=== PATIENT | male | born 1995 | race Caucasian/White ===

== ENCOUNTER 2019-10-17 12:15 | Emergency (ER) | payer OTHER ==
[~2019-10-17] VITALS: Ht 185.4 cm; Wt 88.6 kg
--- NOTE | 2019-10-17 12:55 | PHYS DOC ---
Past Medical History Past Medical History: Diabetes-Type I (RAS MEJÍA MD) General Adult EDM: Chief Complaint: HYPERGLYCEMIA HPI: HPI: Patient is a 24 year old man with history of diabetes type 1 who presents today from [facility] to be evaluated for hyperglycemia with nausea and vomiting that begun 4 days ago and got worse this morning. Patient was booked into prison on October 13, 2019, he had an insulin pump that was removed because he cannot be in the general population with the pump. He was started on injectable insulins He was vomiting this morning and blood glucose in the 400s. Patient is lethargic and not able to give much information. 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 (SARAH ARROYO APRN) HPI: 24-year-old male presenting to the emergency department from [facility] with nausea vomiting and hyperglycemia initially seen by nurse practitioner Sarah Lopez. We initiated a DKA work-up on the patient and then saw the patient and pneumomediastinum on chest x-ray. CT chest ordered. CT chest shows pneumonia mediastinum without obvious etiology with signs of esophagitis on CT scan. He has a history of GERD. The patient has been having multiple episodes of nausea and vomiting and has been treated for hyperglycemia for more than the 3 days that he was at the counts include 234 beds at the [facility] which they just received him from another prison. He has not had any hemoptysis unilateral leg swelling. He came in initially and was confused and tachycardic. His blood sugar was initially over 600. IV fluids administrated. His EKG showed mild ST segment elevation in lead V2 and V3. We spoke with cardiology who reviewed his EKG does not meet STEMI criteria. Dr. Arnold reviewed the patient's EKG as to Dr. Leone. Given the patient's pneumomediastinum Boerhaave's syndrome is in the differential especially with esophagitis on the CT. Patient was given IV antibiotics. I spoke with our general surgeon who asked the patient be transferred to a hospital with cardiothoracic surgery backup which we do not have on currently. I then called [facility] and spoke with the transfer team. After they spoke with her cardiothoracic surgeon at approximately 515 they called us back and told us they were unable to take the patient because the cardiothoracic surgeon would be unable to take the patient the operating room if he/she needed to. I then put a call out to [facility] and spoke with their transfer center. They will call back, time is now 525pm. Clinically speaking the patient's heart rate remains around 115. He is more alert and clear in his mind when speaking with him. He does not have slurred speech. He has 2-second cap refill and is not in any pain. (RAS MEJÍA MD) Review of Systems: Review of Systems: Constitutional: Denies fever or chills. [] Eyes: Denies change in visual acuity. [] HENT: Denies nasal congestion or sore throat. [] Respiratory: Denies cough or shortness of breath. [] Cardiovascular: Denies chest pain or edema. [] GI: Reports nausea and vomiting. Denies abdominal pain, bloody stools or diarrhea. [] : Denies dysuria. [] Musculoskeletal: Denies back pain or joint pain. [] Integument: Denies rash. [] Neurologic: Denies headache, focal weakness or sensory changes. [] Endocrine: Reports hyperglycemia Lymphatic: Denies swollen glands. [] Psychiatric: Denies depression or anxiety. [] (SARAH ARROYO APRN) Heart Score: HEART Score for Chest Pain: HEART Score for Chest Pain Response (Comments) Value History Moderately Suspicious [address] Depression 2 Age < 45 0 Risk Factors 1 or 2 Risk Factors 1 Troponin < Normal Limit 0 Total 4 Risk Factors: Risk Factors: DM, Current or recent (<one month) smoker, HTN, HLP, family history of CAD, obesity. Risk Scores: Score 0 - 3: 2.5% MACE over next 6 weeks - Discharge Home Score 4 - 6: 20.3% MACE over next 6 weeks - Admit for Clinical Observation Score 7 - 10: 72.7% MACE over next 6 weeks - Early Invasive Strategies (SARAH ARROYO APRN) Current Medications: Current Medications Medications (Trade) Dose Ordered Sig/Lou Start Time Stop Time Status Last Admin Dose Admin Sodium Chloride 1,000 ml @ 1,000 mls/hr 1X ONCE 10/17/19 13:00 10/17/19 13:59 [facility] (SARAH ARROYO APRN) Physical Exam: PE: Constitutional: Lethargic ille appearing patient HENT: Normocephalic, atraumatic, bilateral external ears normal, oropharynx moist, no oral exudates, nose normal. [] Eyes: PERRLA, EOMI, conjunctiva normal, no discharge. [] Neck: Normal range of motion, no tenderness, supple, no stridor. [] Cardiovascular:Heart rate regular rhythm, no murmur [] Lungs & Thorax: Bilateral breath sounds are diminished. Abdomen: Bowel sounds normal, soft, no tenderness, no masses, no pulsatile masses. [] Skin: very dry skin with dry mucous membranes Back: No tenderness, no CVA tenderness. [] Extremities: No tenderness, no cyanosis, no clubbing, ROM intact, no edema. [] Neurologic: Alert and oriented X 3, normal motor function, normal sensory function, no focal deficits noted. Cranial nerves II through XII intact Psychologic: flat affect. (SARAH ARROYO APRN) EKG: EKG: [] (SARAH ARROYO APRN) Radiology/Procedures: Radiology/Procedures: []PROCEDURE: CT HEAD WO CONTRAST EXAM: Head CT without contrast. HISTORY: Altered mental status. TECHNIQUE: Computed tomographic images of the head were obtained without contrast. *One or more of the following individualized dose reduction techniques were utilized for this examination: 1. Automated exposure control. 2. Adjustment of the mA and/or kV according to patient size. 3. Use of iterative reconstruction technique. COMPARISON: None. FINDINGS: There is no acute or subacute extra-axial or intraparenchymal hemorrhage. There is no mass effect or midline shift. There is no hydrocephalus. The tate-white matter differential pattern is intact. There is gas within the soft tissues at the skull base due to soft tissue emphysema. There is a small right maxillary sinus mucous retention cyst. The mastoid air cells are clear. No fracture is seen. IMPRESSION: 1. No acute intracranial finding. 2. Soft tissue emphysema at the base of the skull. In the absence of known a etiology, correlate with a dedicated neck and chest CT. Electronically signed by: Radha Rodriguez MD (10/17/2019 2:37 PM) [facility] DICTATED and SIGNED BY: RADHA RODRIGUEZ MD DATE: 10/17/19 1437 PROCEDURE: PORTABLE CHEST 1V INDICATION: Reason: hyperglycemia, AMS / Spl. Instructions: / History: COMPARISON: September 13, 2019 FINDINGS: Single view of chest obtained. No focal airspace consolidation. There is vertically oriented regions of air seen within the upper chest as well as at the partially visualized neck base. There is also suspected linear air seen at the mediastinum. IMPRESSION: * Low-density is seen at the soft tissues of the neck base which could be secondary to some air within the area. There is also suspected pneumomediastinum. Would be difficult to exclude a small apical pneumothorax given the air projecting over the region. Electronically signed by: Naila Ovalle MD (10/17/2019 1:23 PM) [id number] DICTATED and SIGNED BY: NAILA OVALLE MD DATE: 10/17/19 1323 PROCEDURE: CT CHEST WO CONTRAST CT CHEST WO CONTRAST Indication: Pneumomediastinum Technique: Noncontrast CT imaging was performed of the chest, multiplanar reconstruction images submitted. One or more of the following individualized dose reduction techniques were utilized for this examination: 1. Automated exposure control 2. Adjustment of the mA and/or kV according to patient size 3. Use of iterative reconstruction technique. Comparison: None Findings: There is believed prominent pneumomediastinum, also extent of gas into the soft tissues of the visualized neck. There is no pneumothorax. There is diffuse esophageal wall thickening. Thoracic aortic caliber is within normal limits. There is no pleural or pericardial fluid. There is no infiltrate. No significantly enlarged nodes are identified of the chest. IMPRESSION: 1. There is prominent pneumomediastinum, also extent of gas into the soft tissues of the neck. Etiology is uncertain. There is diffuse esophageal wall thickness as may be seen with esophagitis. Electronically signed by: Vargas Morales MD (10/17/2019 2:51 PM) [facility] DICTATED and SIGNED BY: VARGAS MORALES MD DATE: 10/17/19 1451 (SARAH ARROYO APRN) Course & Med Decision Making: Course & Med Decision Making Pertinent Labs and Imaging studies reviewed. (See chart for details) This is a 24-year-old male patient with history of diabetes type 1 presenting to the ED today from [facility] to be evaluated for hyperglycemia with nausea and vomiting for four days. He had an insulin pump which was removed when he was booked in the prison on October 13, 2019. His sugars were in the 400s today. Patient appears lethargic and not able to give us much information. Bedside glucose to high to read Vitals on arrival to the ED temperature 98.6, heart rate 115, blood pressure 181/88, respirations 16, O2 sats 98% on room air CBC with a WBC of 17.4, hemoglobin 19.3, hematocrit 55.6, lactic 2.1, pro gabriel citonin 4.131, sodium 117-corrected for glucose to 130, creatinine 2.2, BUN 75, blood glucose 636, anion gap 29, CK 6103, troponin 0 0.190, EKG concerning J point elevations on V2 and V3. Patient was given an aspirin. 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 CT chest was obtained which continued to show pneumomediastinum and esophagitis. CT head is negative. spoke with Dr. Byrd who requested this patient to be transferred for higher level of care because we do not have a cardiothoracic surgeon Care tx to Dr. Mejía (SARAH ARROYO APRN) Dragon Disclaimer: Dragon Disclaimer: This electronic medical record was generated, in whole or in part, using a voice recognition dictation system. (SARAH ARROYO APRN) Date and Time of Reassessment Date: Oct 17, 2019 Time: 14:45 (SARAH ARROYO APRN) Fluid Challenge Is the fluid challenge complet: No IBW Target Volume Used: No BMI > 30: No (SARAH ARROYO APRN) Vital Signs Vital Signs: Vital Signs Date Time Temp Pulse Resp B/P (MAP) Pulse Ox O2 Delivery O2 Flow Rate FiO2 10/17/19 14:30 118 153/97 (115) 10/17/19 12:40 98.6 16 98 Room Air 98.6 Temperature Source: Oral (SARAH ARROYO APRN) Temperature Source: Oral (RAS MEJÍA MD) Respirations Respiratory Effort: Normal Respiratory Pattern: Normal (SARAH ARROYO APRN) Cardiovascular Pulse Rhythm: Regular Heart: Nml rate, reg. rhythm (SARAH ARROYO APRN) Lung Sounds Breath Sounds: Clear (SARAH ARROYO APRN) Capillary Refil Capillary Refill: Lt Hand < 3 seconds (SARAH ARROYO APRN) Peripheral Pulse Pulse Location: Monitor Pulse Strength: Normal (2+) Pulse Assessment Method: Monitor (SARAH ARROYO APRN) Pulse Assessment Method: Monitor (RAS MEJÍA MD) Integumentary Skin: Warm, Dry Skin Moisture: Dry Skin Turgor: Normal Skin Color: warm, dry, no edema Fingernail Color: WNL (SARAH ARROYO APRN) Departure Departure Impression: Primary Impression: DKA (diabetic ketoacidoses) Qualified Codes: E10.10 - Type 1 diabetes mellitus with ketoacidosis without coma Additional Impressions: NSTEMI (non-ST elevated myocardial infarction) Leukocytosis Qualified Codes: D72.829 - Elevated white blood cell count, unspecified ARF (acute renal failure) Qualified Codes: N17.9 - Acute kidney failure, unspecified Sepsis Qualified Codes: A41.9 - Sepsis, unspecified organism; R65.21 - Severe sepsis with septic shock; N17.9 - Acute kidney failure, unspecified Rhabdomyolysis Qualified Codes: M62.82 - Rhabdomyolysis Disposition: 09 ADMITTED INPATIENT Condition: STABLE Referrals: NO PCP (PCP) Justicifation of Admission Dx: Justifications for Admission: Justification of Admission Dx: Yes DKA: DKA (SARAH ARROYO APRN) Critical Care Time Critical care time spent was 55 minutes exclusive of procedures. Time was spent evaluating the patient, ordering the administration of medications, reevaluating the patient, discussing with the admitting provider and documenting. (RAS MEJÍA MD) SARAH ARROYO APRN Oct 17, 2019 12:55 RAS MEJÍA MD Oct 17, 2019 17:27
[2019-10-17] MEDS ORDERED: IV NORMAL SALINE 1000ML BAG 1,000 ML IV ONE ×6 (13:00→15:15)
[2019-10-17 13:08] LABS: BASO % 0 % (0-3); EOS % 0 % (0-3); HEMATOCRIT 55.6 % (39.0-53.0); HEMOGLOBIN 19.3 g/dL (13.0-17.5); LYMPH # 0.7 x10^3/uL (1.0-4.8); LYMPH % 4 % (24-48); MEAN CORPUSCULAR HEMOGLOBIN 30 pg (25-35); MEAN CORPUSCULAR HGB CONC 35 g/dL (31-37); MEAN CORPUSCULAR VOLUME 87 fL (79-100); MONO # 1.8 x10^3/uL (0.0-1.1); MONO % 10 % (0-9); NEUT # 14.9 x10^3/uL (1.8-7.7); NEUT % 86 % (31-73); PLATELET COUNT 259 x10^3/uL (140-400); RED BLOOD COUNT 6.43 x10^6/uL (4.30-5.70); RED CELL DISTRIBUTION WIDTH 12.8 % (11.5-14.5); WHITE BLOOD COUNT 17.4 x10^3/uL (4.0-11.0)
[2019-10-17 13:17] LABS: PROTHROMBIN TIME PATIENT 13.2 SEC (11.7-14.0)
--- NOTE | 2019-10-17 13:26 | RAD ---
INDICATION: Reason: hyperglycemia, AMS / Spl. Instructions: / History: COMPARISON: September 13, 2019 FINDINGS: Single view of chest obtained. No focal airspace consolidation. There is vertically oriented regions of air seen within the upper chest as well as at the partially visualized neck base. There is also suspected linear air seen at the mediastinum. IMPRESSION: * Low-density is seen at the soft tissues of the neck base which could be secondary to some air within the area. There is also suspected pneumomediastinum. Would be difficult to exclude a small apical pneumothorax given the air projecting over the region. Electronically signed by: Samuel Lira MD (10/17/2019 1:23 PM) [id number]
[2019-10-17] MEDS ORDERED: ONDANSETRON PF 4 MG/2 ML VIAL. IVP ONE (13:30)
[2019-10-17] MEDS ORDERED: FAMOTIDINE 20 MG/2 ML VIAL IVP ONE (13:30)
[2019-10-17 13:33] LABS: BILIRUBIN,URINE NEGATIVE (NEG); CLARITY,URINE CLEAR; COLOR,URINE YELLOW; NITRITE,URINE NEGATIVE (NEG); PROTEIN,URINE 30 mg/dL (NEG-TRACE); UROBILINOGEN,URINE 0.2 mg/dL (0.2 mg/dL)
[2019-10-17 13:38] LABS: ALBUMIN 3.9 g/dL (3.4-5.0); ALBUMIN/GLOBULIN RATIO 0.7 (1.0-1.7); CALCIUM 9.5 mg/dL (8.5-10.1); CREATININE 2.2 mg/dL (0.7-1.3); GFR 37.3; MAGNESIUM 3.2 mg/dL (1.8-2.4); POTASSIUM 3.9 mmol/L (3.5-5.1); TOTAL BILIRUBIN 1.1 mg/dL (0.2-1.0); TOTAL PROTEIN 9.2 g/dL (6.4-8.2)
[2019-10-17 13:46] LABS: BACTERIA,URINE 0 /HPF (0-FEW); RBC,URINE 0 /HPF (0-2); WBC,URINE RARE /HPF (0-4)
[2019-10-17 13:47] LABS: HYALINE CASTS, URINE OCCASIONAL /HPF
[2019-10-17 14:00] LABS: % BANDS 4 % (0-9); % LYMPHS 6 % (24-48); % MONOS 11 % (0-10); % SEGS 79 % (35-66); PLT ESTIMATE ADEQUATE (ADEQUATE)
[2019-10-17] MEDS ORDERED: INSULIN REGULAR VIAL 100 UNIT in IV NORMAL SALINE 100ML 100 ML IV PRN (14:00)
[2019-10-17] MEDS ORDERED: ASPIRIN 325 MG TABLET PO ONE (14:00)
[2019-10-17] MEDS ORDERED: POTASSIUM CHLORIDE 10MEQ 100 ML IV PRN ×3 (14:00)
[2019-10-17] MEDS ORDERED: INSULIN,REGULAR 100 UNIT DRIP 100 ML IV ONE (14:15)
[2019-10-17 14:33] LABS: BASE EXCESS ABG -12 mmol/L (-3-3); HCO3 ABG 12 mmol/L (21-28); PCO2 ABG 25 mmHg (35-46); PO2 ABG 99 mmHg (85-108); SAT O2 ABG 97 % (92-99)
[2019-10-17 14:35] LABS: FIO2 ABG 21
--- NOTE | 2019-10-17 14:39 | RAD ---
EXAM: Head CT without contrast. HISTORY: Altered mental status. TECHNIQUE: Computed tomographic images of the head were obtained without contrast. *One or more of the following individualized dose reduction techniques were utilized for this examination: 1. Automated exposure control. 2. Adjustment of the mA and/or kV according to patient size. 3. Use of iterative reconstruction technique. COMPARISON: None. FINDINGS: There is no acute or subacute extra-axial or intraparenchymal hemorrhage. There is no mass effect or midline shift. There is no hydrocephalus. The ttae-white matter differential pattern is intact. There is gas within the soft tissues at the skull base due to soft tissue emphysema. There is a small right maxillary sinus mucous retention cyst. The mastoid air cells are clear. No fracture is seen. IMPRESSION: 1. No acute intracranial finding. 2. Soft tissue emphysema at the base of the skull. In the absence of known a etiology, correlate with a dedicated neck and chest CT. Electronically signed by: Radha He MD (10/17/2019 2:37 PM) [facility]
--- NOTE | 2019-10-17 14:54 | RAD ---
CT CHEST WO CONTRAST Indication: Pneumomediastinum Technique: Noncontrast CT imaging was performed of the chest, multiplanar reconstruction images submitted. One or more of the following individualized dose reduction techniques were utilized for this examination: 1. Automated exposure control 2. Adjustment of the mA and/or kV according to patient size 3. Use of iterative reconstruction technique. Comparison: None Findings: There is believed prominent pneumomediastinum, also extent of gas into the soft tissues of the visualized neck. There is no pneumothorax. There is diffuse esophageal wall thickening. Thoracic aortic caliber is within normal limits. There is no pleural or pericardial fluid. There is no infiltrate. No significantly enlarged nodes are identified of the chest. IMPRESSION: 1. There is prominent pneumomediastinum, also extent of gas into the soft tissues of the neck. Etiology is uncertain. There is diffuse esophageal wall thickness as may be seen with esophagitis. Electronically signed by: Cheng Jean MD (10/17/2019 2:51 PM) [facility]
--- NOTE | 2019-10-17 15:03 | EKG ---
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
[2019-10-17] MEDS ORDERED: ONDANSETRON PF 4 MG/2 ML VIAL. IV PRN (15:15)
[2019-10-17] MEDS ORDERED: MORPHINE SULFATE 2 MG/ML VIAL. IV PRN (15:15)
[2019-10-17] MEDS ORDERED: VANCOMYCIN PER PHARMACY MC PRN (15:45)
[2019-10-17] MEDS ORDERED: PIPERACILLIN/TAZOBACTAM 2.25 GM in IV NORMAL SALINE 50ML 50 ML IV ONE (16:00)
[2019-10-17] MEDS ORDERED: VANCOMYCIN 2 GM in IV NORMAL SALINE 500ML BAG 500 ML IV ONE (16:30)
--- NOTE | 2019-10-17 17:15 | RAD ---
INDICATION: Reason: Pneumomediastinum / Spl. Instructions: / History: COMPARISON: Chest x-ray from earlier same day TECHNIQUE: Axial CT images obtained through the abdomen and pelvis without contrast. One or more of the following individualized dose reduction techniques were utilized for this examination: 1. Automated exposure control; 2. Adjustment of the mA and/or kV according to patient size; 3. Use of iterative reconstruction technique. FINDINGS: Pneumomediastinum is partially visualized including anterior to the heart as well as surrounding the esophagus. The esophagus is thick-walled. Abdominal aorta is not aneurysmal. No intrahepatic bile duct dilation. Pancreas not well evaluated on noncontrast exam. Spleen unremarkable. No hydronephrosis. Urinary bladder is well distended. No dilated loops of bowel to suggest obstruction. Mild degenerative changes of the spine. IMPRESSION: * Pneumomediastinum is identified including adjacent to the heart as well as the esophagus. * The esophagus is thick-walled. Would correlate for possible causes such as esophagitis, ulcer or Boerhaave. Electronically signed by: Samuel Lira MD (10/17/2019 5:12 PM) [id number]
--- NOTE | 2019-10-17 17:29 | RAD ---
CT CERVICAL SPINE WO CONTRAST History:Reason: Pneumomediastinum / Spl. Instructions: / History: Technique: Noncontrast CT imaging was performed of the cervical spine. Multiplanar images are reviewed. Exposure: One or more of the following individualized dose reduction techniques were utilized for this examination: 1. Automated exposure control 2. Adjustment of the mA and/or kV according to patient size 3. Use of iterative reconstruction technique. Comparison: None Findings: Normal vertebral body height. Normal alignment. No fracture. Pneumomediastinum with subcutaneous gas extending throughout the neck soft tissues and retropharyngeal space. No evidence of retropharyngeal fluid or fluid collection to suggest abscess. Impression: 1. Pneumomediastinum extending into the neck soft tissues and retropharyngeal space. Electronically signed by: Christopher Parra DO (10/17/2019 5:26 PM) [facility]
[2019-10-17 18:38] VITALS: BP 175/85
--- NOTE | 2019-10-21 05:25 | EKG ---
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
== END 2019-10-17 18:43 | disposition short-term general hospital (02) ==
LOC: ER 12:15 → EEVIPCON 12:15 → UNDOADMIN 13:50 → 1 WEST ICU 13:50 → ER 18:43
DX: A41.9 Sepsis, unspecified organism (principal); D72.829 Elevated white blood cell count, unspecified; N17.9 Acute kidney failure, unspecified; E10.10 Type 1 diabetes mellitus with ketoacidosis without coma; R65.21 Severe sepsis with septic shock; M62.82 Rhabdomyolysis
CPT/HCPCS: 36415; 36600; 70450; 71045; 71250; 72125; 74176; 80053; 81001; 82010; 82140; 82553; 82805; 82962; 83605; 83690; 83735; 84100; 84145; 84443; 84484; 85007; 85025; 85610; 85730; 87040; 93005; 96361; 96365; 96366; 96368; 96375; 99291; J1815; J1956; J2405; J2543; J3370; J3490; J7030; J7040